=== PATIENT | female | born 1935 | race African-American/Black ===

== ENCOUNTER 2022-03-08 08:48 | Emergency (ER) | payer SELFPAY ==
[~2022-03-08] VITALS: Ht 157.5 cm; Wt 63.0 kg
[2022-03-08] MEDS ORDERED: HYDR-4001 MT ×2 (09:13→09:27)
[2022-03-08] MEDS ORDERED: HYDROCODONE/ACETAMINOPHEN 5/325MG TABLET PO ONE (09:30)
[2022-03-08 09:40] VITALS: BP 148/96
== END 2022-03-08 09:59 | disposition home or self-care (01) ==
LOC: ER 09:23
DX: M79.662 Pain in left lower leg (principal); M79.661 Pain in right lower leg; M79.602 Pain in left arm; M79.601 Pain in right arm; M19.90 Unspecified osteoarthritis, unspecified site; Z87.891 Personal history of nicotine dependence
CPT/HCPCS: 99283